=== PATIENT | female | born 1970 | race Caucasian/White ===

== ENCOUNTER 2016-07-07 14:57 | Emergency (ER) | payer OTHER ==
[2016-07-07 18:31] LABS: CREATININE 0.8 mg/dL (0.5-1.0); POTASSIUM 3.5 mmol/L (3.5-5.1)
[2016-07-07 18:44] LABS: BASOPHIL 0.3 % (0-2); EOSINOPHIL 3.7 % (0-5); HCT 38.5 % (37.0-47.0); HGB 13.5 g/dl (12.5-16.0); LYMPHOCYTE 27.7 % (15-48); MCH 32.8 pg (25.0-31.0); MCHC 35.1 g/dL (32.0-36.0); MCV 93.4 fL (78.0-100.0); MONOCYTE 8.9 % (0-12); MPV 10.1 fL (6.0-9.5); NEUTROPHIL 59.4 % (41-80); PLT 291 K/uL (150-400); RBC 4.12 M/uL (4.20-5.40); RDW 12.4 % (11.5-14.0); WBC 7.3 K/uL (4.0-10.5)
[2016-07-07 18:45] LABS: BILIRUBIN 1+ mg/dL (NEGATIVE); BLOOD 1+ Ery/uL (NEGATIVE); CLARITY HAZY (CLEAR); COLOR YELLOW (YELLOW); GLUCOSE (U) NORMAL (NORMAL); KETONE (U) TRACE mg/dL (NEGATIVE); LEUKOCYTES NEGATIVE Leu/uL (NEGATIVE); NITRITE NEGATIVE (NEGATIVE); PROTEIN TRACE (LOW) mg/dL (NEGATIVE); SPECIFIC GRAVITY >=1.030 (1.001-1.030); pH 5.5 (5.0-9.0)
[2016-07-07 18:52] LABS: BACTERIA 1+; SQUAMOUS EPITHELIAL CELLS >50
[2016-07-07 18:53] LABS: MUCOUS LARGE
[2016-07-07 19:00] LABS: URIC ACID CRYSTALS TRACE
[2016-07-07 19:04] LABS: BENZODIAZEPINES NEGATIVE (NEGATIVE); COCAINE NEGATIVE (NEGATIVE)
[2016-07-07 19:05] LABS: AMPHETAMINES POSITIVE (NEGATIVE); BARBITURATES NEGATIVE (NEGATIVE); MARIJUANA (THC) POSITIVE (NEGATIVE); METHADONE NEGATIVE (NEGATIVE); TRICYCLIC ANTIDEPRESSANT NEGATIVE (NEGATIVE)
== END 2016-07-07 20:06 | disposition home or self-care (01) ==
LOC: FER 14:57
PROVIDERS: Internal Medicine
DX: F19.239 Other psychoactive substance dependence with withdrawal, unspecified (principal); R19.7 Diarrhea, unspecified; M79.605 Pain in left leg; M79.604 Pain in right leg; I10 Essential (primary) hypertension; G89.29 Other chronic pain; F17.210 Nicotine dependence, cigarettes, uncomplicated; Z79.899 Other long term (current) drug therapy; Z88.5 Allergy status to narcotic agent; Z88.8 Allergy status to other drugs, medicaments and biological substances; Z98.51 Tubal ligation status; Z98.890 Other specified postprocedural states
CPT/HCPCS: 36415; 80048; 80305; 81001; 85025; 87088; 99284

== ENCOUNTER 2020-04-17 14:40 | Emergency (ER) | payer OTHER ==
[~2020-04-17 14:40] MED LIST: CATAPRES0.1 MG PO; FEOSOL325 MG PO; K-DUR20 MEQ PO; LEVAQUIN750 M1 PO; NICODERM CQ1 EAC2 TD; PROZAC20 MG PO; TYLENOL325 M1 PO
== END 2020-04-17 15:00 | disposition left against medical advice (07) ==
LOC: FER 14:40
DX: R42 Dizziness and giddiness (principal); R19.7 Diarrhea, unspecified; R55 Syncope and collapse; Z53.8 Procedure and treatment not carried out for other reasons

== ENCOUNTER 2020-05-14 15:27 | Emergency (ER) | payer OTHER ==
[2020-05-14] MEDS ORDERED: NORCO 5-325 TA1 EACH PO (16:49)
== END 2020-05-14 17:04 | disposition home or self-care (01) ==
LOC: FER 15:27
DX: S22.31XA Fracture of one rib, right side, initial encounter for closed fracture (principal); I10 Essential (primary) hypertension; Z79.899 Other long term (current) drug therapy; W50.0XXA Accidental hit or strike by another person, initial encounter
CPT/HCPCS: 71046

== ENCOUNTER 2020-06-05 21:11 | Emergency (ER) | payer OTHER ==
[~2020-06-05 21:11] MED LIST changes: +NORCO 5-325 TA1 EACH PO
[2020-06-06 01:01] LABS: BASOPHIL 0.4 % (0-2); EOSINOPHIL 7.1 % (0-5); HCT 40.6 % (37.0-47.0); HGB 13.5 g/dl (12.5-16.0); MCH 32.6 pg (25.0-31.0); MCHC 33.3 g/dL (32.0-36.0); MCV 98.1 fL (78.0-100.0); MONOCYTE 4.8 % (0-12); MPV 9.5 fL (6.0-9.5); NEUTROPHIL 56.5 % (41-80); NRBC 0; PLT 296 K/uL (150-400); RBC 4.14 M/uL (4.20-5.40); RDW 12.5 % (11.5-14.0); WBC 4.8 K/uL (4.0-10.5)
[2020-06-06 01:17] LABS: BUN/CREAT RATIO (CALC) 22.1 RATIO; CREATININE 0.68 mg/dL (0.51-0.95); POTASSIUM 3.7 mmol/L (3.5-5.1)
[2020-06-06] MEDS ORDERED: PERCOCET 5-3251 EACH PO (02:47)
[2020-06-06] MEDS ORDERED: VIBRAMYCIN100 MG PO (02:47)
== END 2020-06-06 03:15 | disposition home or self-care (01) ==
LOC: FER 21:11
PROVIDERS: Student in an Organized Health Care Education/Training Program
DX: R07.89 Other chest pain (principal); J98.11 Atelectasis; I10 Essential (primary) hypertension; F17.210 Nicotine dependence, cigarettes, uncomplicated; Z87.81 Personal history of (healed) traumatic fracture
CPT/HCPCS: 36415; 71045; 71275; 80048; 85025; 94010; J2270; J2405; J7030; Q9967

== ENCOUNTER 2020-12-07 13:58 | Emergency (ER) | payer OTHER ==
[~2020-12-07 13:58] MED LIST changes: +PERCOCET 5-3251 EACH PO; +VIBRAMYCIN100 MG PO
[2020-12-07] MEDS ORDERED: IBU600 MG PO (17:55)
== END 2020-12-07 18:30 | disposition home or self-care (01) ==
LOC: FER 13:58
DX: S93.401A Sprain of unspecified ligament of right ankle, initial encounter (principal); S80.212A Abrasion, left knee, initial encounter; S80.211A Abrasion, right knee, initial encounter; I10 Essential (primary) hypertension; F17.210 Nicotine dependence, cigarettes, uncomplicated; W18.41XA Slipping, tripping and stumbling without falling due to stepping on object, initial encounter; X50.1XXA Overexertion from prolonged static or awkward postures, initial encounter; Y92.007 Garden or yard of unspecified non-institutional (private) residence as the place of occurrence of the external cause
CPT/HCPCS: 73610

== ENCOUNTER 2021-01-19 03:21 | Emergency (ER) | payer OTHER ==
[~2021-01-19 03:21] MED LIST changes: +IBU600 MG PO
== END 2021-01-19 05:07 | disposition home or self-care (01) ==
LOC: FER 03:21
DX: M79.642 Pain in left hand (principal); F17.200 Nicotine dependence, unspecified, uncomplicated; Z88.6 Allergy status to analgesic agent
CPT/HCPCS: 73130

== ENCOUNTER 2021-01-21 00:33 | Emergency (ER) | payer OTHER ==
[2021-01-21 01:06] LABS: BASOPHIL 0 % (0-2); EOSINOPHIL 0.3 % (0-5); HGB 11.2 g/dl (12.5-16.0); LYMPHOCYTE 13.3 % (15-48); MCH 32.8 pg (25.0-31.0); MCHC 33.9 g/dL (32.0-36.0); MCV 96.8 fL (78.0-100.0); MONOCYTE 6.3 % (0-12); MPV 9.7 fL (6.0-9.5); NEUTROPHIL 79.8 % (41-80); NRBC 0; PLT 147 K/uL (150-400); RBC 3.41 M/uL (4.20-5.40); RDW 12.1 % (11.5-14.0)
[2021-01-21 02:14] LABS: ACETAMINOPHEN (TYLENOL) 2.3 ug/mL (10.0-30.0); ALBUMIN 3.5 g/dL (3.4-5.0); ALKALINE PHOSHATASE 104 U/L (46-116); ALT 45 U/L (14-59); AST 47 U/L (15-37); BILIRUBIN - TOTAL 0.6 mg/dL (0.2-1.0); BUN 22 mg/dL (7-18); CHLORIDE 103 mmol/L (98-107); CO2 (BICARBONATE) 25 mmol/L (21-32); CREATININE 0.88 mg/dL (0.51-0.95); GLOBULIN (CALCULATION) 3.1 g/dL; GLUCOSE 98 mg/dL (74-106); TOTAL PROTEIN 6.6 g/dL (6.4-8.2)
== END 2021-01-21 02:33 | disposition left against medical advice (07) ==
LOC: FER 00:33
PROVIDERS: Emergency Medicine
DX: Z13.9 Encounter for screening, unspecified (principal); I10 Essential (primary) hypertension; F17.200 Nicotine dependence, unspecified, uncomplicated; Z53.8 Procedure and treatment not carried out for other reasons; Z88.6 Allergy status to analgesic agent
CPT/HCPCS: 36415; 80053; 85025; 93005; G0480

== ENCOUNTER 2021-01-23 19:57 | Emergency (ER) | payer OTHER ==
[2021-01-24] MEDS ORDERED: ZOFRAN4 M1 PO (00:52)
== END 2021-01-24 01:30 | disposition home or self-care (01) ==
LOC: FER 19:57
DX: U07.1 COVID-19 (principal); I10 Essential (primary) hypertension; F17.200 Nicotine dependence, unspecified, uncomplicated; Z88.6 Allergy status to analgesic agent; Z79.899 Other long term (current) drug therapy
CPT/HCPCS: 99283; U0002

== ENCOUNTER 2021-03-15 16:24 | Emergency (ER) | payer OTHER ==
[~2021-03-15 16:24] MED LIST changes: +ZOFRAN4 M1 PO
[2021-03-15 17:03] LABS: BASOPHIL 0.2 % (0-2); EOSINOPHIL 2.2 % (0-5); HCT 39.4 % (37.0-47.0); HGB 13.2 g/dl (12.5-16.0); LYMPHOCYTE 25.5 % (15-48); MCH 32.2 pg (25.0-31.0); MCHC 33.5 g/dL (32.0-36.0); MCV 96.1 fL (78.0-100.0); MONOCYTE 6.8 % (0-12); MPV 9.8 fL (6.0-9.5); NEUTROPHIL 65.1 % (41-80); NRBC 0; PLT 282 K/uL (150-400); RDW 12.7 % (11.5-14.0); WBC 5.6 K/uL (4.0-10.5)
[2021-03-15 17:17] LABS: ALBUMIN 4.2 g/dL (3.4-5.0); BILIRUBIN - TOTAL 0.8 mg/dL (0.2-1.0); BUN/CREAT RATIO (CALC) 34.4 RATIO; CREATININE 0.93 mg/dL (0.51-0.95); GLOBULIN (CALCULATION) 3.1 g/dL; INR 0.93 (0.9-1.2); POTASSIUM 3.8 mmol/L (3.5-5.1); PROTHROMBIN TIME 11.9 SECONDS (11.8-13.4); TOTAL PROTEIN 7.3 g/dL (6.4-8.2)
[2021-03-15 17:18] LABS: PTT 29.3 SECONDS (24.4-34.7)
[2021-03-15 17:20] LABS: D-DIMER 0.31 ug/mLFEU (0.00-0.41)
[2021-03-15 17:24] LABS: PRO-BNP 56 pg/mL (<125)
[2021-03-15 18:16] LABS: AMPHETAMINES POSITIVE (NEGATIVE); BARBITURATES NEGATIVE (NEGATIVE); ECSTASY (MDMA) POSITIVE (NEGATIVE); MARIJUANA (THC) NEGATIVE (NEGATIVE); METHADONE NEGATIVE (NEGATIVE); OPIATES NEGATIVE (NEGATIVE); OXYCODONE NEGATIVE (NEGATIVE)
[2021-03-15 18:20] LABS: BILIRUBIN NEGATIVE (NEGATIVE); BLOOD 1+ Ery/uL (NEGATIVE); CLARITY CLEAR (CLEAR); COLOR YELLOW (YELLOW); GLUCOSE (U) NORMAL (NORMAL); LEUKOCYTES TRACE Leu/uL (NEGATIVE); NITRITE NEGATIVE (NEGATIVE); PROTEIN NEGATIVE (NEGATIVE); SPECIFIC GRAVITY >=1.030 (1.001-1.030); UROBILINOGEN 0.2 mg/dL (0.2-1.0)
[2021-03-15 18:33] LABS: MUCOUS TRACE; URINARY RBC RARE
== END 2021-03-15 21:39 | disposition home or self-care (01) ==
LOC: FER 16:24
PROVIDERS: Emergency Medicine
DX: R07.89 Other chest pain (principal); F16.10 Hallucinogen abuse, uncomplicated; F15.10 Other stimulant abuse, uncomplicated; I10 Essential (primary) hypertension
CPT/HCPCS: 36415; 71045; 80053; 80305; 81001; 83880; 84484; 85025; 85379; 85610; 85730

== ENCOUNTER 2021-07-03 18:59 | Emergency (ER) | payer OTHER ==
[2021-07-03 20:16] LABS: BILIRUBIN NEGATIVE (NEGATIVE); BLOOD 1+ Ery/uL (NEGATIVE); CLARITY CLEAR (CLEAR); COLOR YELLOW (YELLOW); GLUCOSE (U) NORMAL (NORMAL); LEUKOCYTES NEGATIVE Leu/uL (NEGATIVE); NITRITE NEGATIVE (NEGATIVE); PROTEIN NEGATIVE (NEGATIVE); SPECIFIC GRAVITY 1.015 (1.001-1.030); UROBILINOGEN 0.2 mg/dL (0.2-1.0)
[2021-07-03 20:23] LABS: AMPHETAMINES NEGATIVE (NEGATIVE); BARBITURATES NEGATIVE (NEGATIVE); ECSTASY (MDMA) NEGATIVE (NEGATIVE); MARIJUANA (THC) NEGATIVE (NEGATIVE); METHADONE NEGATIVE (NEGATIVE); OPIATES NEGATIVE (NEGATIVE); OXYCODONE NEGATIVE (NEGATIVE)
[2021-07-03 20:25] LABS: TRANSITIONAL EPITHELIAL CELLS RARE; URINARY WBC RARE
[2021-07-03 20:26] LABS: SQUAMOUS EPITHELIAL CELLS RARE
[2021-07-03 20:46] LABS: BASOPHIL 0.2 % (0-2); EOSINOPHIL 0.4 % (0-5); HCT 37.9 % (37.0-47.0); HGB 13.1 g/dl (12.5-16.0); LYMPHOCYTE 10.4 % (15-48); MCH 32.9 pg (25.0-31.0); MCHC 34.6 g/dL (32.0-36.0); MCV 95.2 fL (78.0-100.0); MONOCYTE 4.4 % (0-12); MPV 9.5 fL (6.0-9.5); NEUTROPHIL 84.3 % (41-80); NRBC 0; PLT 213 K/uL (150-400); RBC 3.98 M/uL (4.20-5.40); RDW 12.3 % (11.5-14.0); WBC 9.5 K/uL (4.0-10.5)
[2021-07-03 21:26] LABS: ALBUMIN 3.9 g/dL (3.4-5.0); ALKALINE PHOSHATASE 128 U/L (46-116); ALT 27 U/L (14-59); AST 17 U/L (15-37); BILIRUBIN - TOTAL 0.3 mg/dL (0.2-1.0); BUN 19 mg/dL (7-18); BUN/CREAT RATIO (CALC) 22.4 RATIO; CHLORIDE 107 mmol/L (98-107); CO2 (BICARBONATE) 26 mmol/L (21-32); CREATININE 0.85 mg/dL (0.51-0.95); GLOBULIN (CALCULATION) 3.2 g/dL; GLUCOSE 112 mg/dL (74-106); POTASSIUM 3.9 mmol/L (3.5-5.1); TOTAL PROTEIN 7.1 g/dL (6.4-8.2)
[2021-07-03 21:29] LABS: ACETAMINOPHEN (TYLENOL) <2.0 ug/mL (10.0-30.0)
== END 2021-07-04 09:27 ==
LOC: FER 18:59
PROVIDERS: Emergency Medicine
DX: T71.162A Asphyxiation due to hanging, intentional self-harm, initial encounter (principal); U07.1 COVID-19; I10 Essential (primary) hypertension; F17.200 Nicotine dependence, unspecified, uncomplicated; Z79.899 Other long term (current) drug therapy
CPT/HCPCS: 36415; 70450; 71045; 72125; 80053; 80305; 81001; 85025; G0480; J1885; J2405; J7030; Q9967; U0002